=== PATIENT | male | born 1940 | race Caucasian/White ===

== ENCOUNTER 2017-03-26 12:15 | Outpatient (RCR) | payer OTHER ==
[~2017-03-26 12:15] MED LIST: MINOXIDIL60 ML TP; OMEPRAZOLE10 M1 ORAL; PAMELOR10 MG ORAL; SIMVASTATIN40 MG ORAL; VITAMIN D5000 UNI1 PO
== END 2017-04-17 | disposition home or self-care (01) ==
LOC: PTY 12:15
DX: S83.242D Other tear of medial meniscus, current injury, left knee, subsequent encounter (principal); M17.12 Unilateral primary osteoarthritis, left knee; R49.0 Dysphonia; X58.XXXD Exposure to other specified factors, subsequent encounter
CPT/HCPCS: 97110; 97161; G0283

== ENCOUNTER 2017-04-25 12:45 | Outpatient (RCR) | payer OTHER | END 2017-05-17 | disposition home or self-care (01) | LOC: PTY 12:45 | DX: S83.242D Other tear of medial meniscus, current injury, left knee, subsequent encounter (principal); M17.12 Unilateral primary osteoarthritis, left knee | CPT/HCPCS: 97110; G0283 ==